=== PATIENT | male | born 1940 | race Caucasian/White ===

== ENCOUNTER 2022-10-11 20:17 | Emergency (ER) | payer MEDICARE, OTHER ==
[2022-10-11 20:38] VITALS: BP 129/67; PULSE 69
[2022-10-11] MEDS ORDERED: Doxycycline 100 MG Cap PO STA (20:54)
== END 2022-10-11 21:15 | disposition home or self-care (01) ==
LOC: JP.ED 20:17
DX: S50.862A Insect bite (nonvenomous) of left forearm, initial encounter (principal); Z88.1 Allergy status to other antibiotic agents; Z88.5 Allergy status to narcotic agent; W57.XXXA Bitten or stung by nonvenomous insect and other nonvenomous arthropods, initial encounter
CPT/HCPCS: 99281; A9270